=== PATIENT | male | born 1955 | race Caucasian/White ===

== ENCOUNTER 2017-09-05 19:11 | Inpatient (IN) | payer BC, MEDICAID ==
[2017-09-05] VITALS (9 sets, daily range): BP systolic 170–214; BP diastolic 58–104; PULSE 56–68; RESP 16–19; TEMP 98.7; O2SAT 96–100
[~2017-09-05] VITALS: Ht 170.2 cm; Wt 89.0 kg
[~2017-09-05 19:11] MED LIST: AMIO200 PO; ASPI81 PO; CEPH500C3 PO; LISI20 PO; METO50TA PO; PRAV10 PO; THERM PO
--- NOTE | 2017-09-05 19:33 | PD ---
HPI Chief Complaint: Chest Pain Time Seen by Provider: 19:30 Travel History International Travel<30 days: No Contact w/Intl Traveler<30days: No Traveled to known affect area: No History of Present Illness HPI PATIENT C/O AN ONGOING UPPER ABDOMEN (POINTS TO EPIG/LUQ) DISCOMFORT, NONRADIATING, PRESSURE LIKE, INTERMITTENT INTENSITY BUT USUALLY 3/10 FOR PAST 3 WEEKS HOWEVER OVER PAST 2-3 DAYS MORE INTENSE AROUND 8/10. NO ALLEVIATING/ AGGRAVATING FACTORS. PATIENT ARRIVED VERY HIGH BLOOD PRESSURE DESPITE TAKING MEDICATIONS USUAL. 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 YET NOT ON ANY MEDICATIONS PFSH Past Medical History Hx Anticoagulant Therapy: Yes (ASA) Blood Disorders: No Heart Rhythm Problems: No Cancer: No Cardiovascular Problems: Yes (CABG X3, HTN) High Cholesterol: Yes Chest Pain: Yes Congestive Heart Failure: No Diabetes: Yes (6months ago his said he may have diabetes) Diminished Hearing: No Endocrine: Yes Genitourinary: No Hypertension: Yes Immune Disorder: No Musculoskeletal: No Neurologic: No Psychiatric: No Reproductive: No Respiratory: Yes (SOB) Myocardial Infarction: Yes Thyroid Disease: No Past Surgical History Coronary Artery Bypass Graft: Yes (DOUBLE BYPASS) Social History Alcohol Use: Yes ("ONCE IN A WHILE") Tobacco Use: No Substance Use: No Allergies-Medications (Allergen,Severity, Reaction): Coded Allergies: No Known Allergies (Verified , 09/05/17) Reported Meds & Prescriptions Reported Meds & Active Scripts Active Review of Systems Except as stated in HPI: all other systems reviewed are Neg Gastrointestinal: Positive: Abdominal Pain (EPIG ) Physical Exam Narrative GENERAL: SKIN: Warm and dry. HEAD: Atraumatic. Normocephalic. EYES: Pupils equal and round. No scleral icterus. No injection or drainage. ENT: No nasal bleeding or discharge. Mucous membranes pink and moist. NECK: Trachea midline. No JVD. CARDIOVASCULAR: Regular rate and rhythm. RESPIRATORY: No accessory muscle use. Clear to auscultation. Breath sounds equal bilaterally. GASTROINTESTINAL: Abdomen soft, MILD EPIG TTPERCUSSION, nondistended. NO REBOUND /GUARDING/RIGIDITY MUSCULOSKELETAL: Extremities without clubbing, cyanosis, or edema. No obvious deformities. NEUROLOGICAL: Awake and alert. No obvious cranial nerve deficits. Motor grossly within normal limits. Five out of 5 muscle strength in the arms and legs. Normal speech. PSYCHIATRIC: Appropriate mood and affect; insight and judgment normal. Data Data Last Documented VS Vital Signs Date Time Temp Pulse Resp B/P (MAP) Pulse Ox O2 Delivery O2 Flow Rate FiO2 09/05/17 22:00 56 19 174/88 (116) 98 Nasal Cannula 09/05/17 19:14 98.7 Orders Orders Complete Blood Count With Diff (09/05/17 19:40) Comprehensive Metabolic Panel (09/05/17 19:40) Lipase (09/05/17 19:40) Prothrombin Time / Inr (Pt) (09/05/17 19:40) Act Partial Throm Time (Ptt) (09/05/17 19:40) Urinalysis - C+S If Indicated (09/05/17 19:40) Ct Abd/Pel W/O Iv Contrast (09/05/17 19:40) Iv Access Insert/Monitor (09/05/17 19:40) Ecg Monitoring (09/05/17 19:40) Oximetry (09/05/17 19:40) NPO (09/05/17 19:40) Morphine Inj (Morphine Inj) (09/05/17 19:45) Ondansetron Inj (Zofran Inj) (09/05/17 19:45) Sodium Chloride 0.9% Flush (Ns Flush) (09/05/17 19:45) Electrocardiogram (09/05/17 19:40) Hydralazine Inj (Apresoline Inj) (09/05/17 19:45) Aspirin Chew (Aspirin Chew) (09/05/17 19:45) Nitroglycerin 2% Oint (Nitroglycerin 2% (09/05/17 19:45) Piperacil-Tazo 3.375 Gm Premix (Zosyn 3. (09/05/17 21:00) Admit Order (Ed Use Only) (09/05/17 22:32) Vital Signs (Adult) Q4H (09/05/17 22:32) Activity Bed Rest (09/05/17 22:32) Notify Dr: Other (09/05/17 22:32) Consult General Surgery (09/05/17 ) Labs Laboratory Tests Test 09/05/17 20:20 White Blood Count 6.2 TH/MM3 Red Blood Count 5.14 MIL/MM3 Hemoglobin 15.2 GM/DL Hematocrit 45.1 % Mean Corpuscular Volume 87.8 FL Mean Corpuscular Hemoglobin 29.7 PG Mean Corpuscular Hemoglobin Concent 33.8 % Red Cell Distribution Width 12.6 % Platelet Count 181 TH/MM3 Mean Platelet Volume 8.8 FL Neutrophils (%) (Auto) 45.1 % Lymphocytes (%) (Auto) 30.4 % Monocytes (%) (Auto) 9.8 % Eosinophils (%) (Auto) 13.6 % Basophils (%) (Auto) 1.1 % Neutrophils # (Auto) 2.8 TH/MM3 Lymphocytes # (Auto) 1.9 TH/MM3 Monocytes # (Auto) 0.6 TH/MM3 Eosinophils # (Auto) 0.8 TH/MM3 Basophils # (Auto) 0.1 TH/MM3 CBC Comment DIFF FINAL Differential Comment Prothrombin Time 10.7 SEC Prothromb Time International Ratio 1.0 RATIO Activated Partial Thromboplast Time 26.4 SEC Urine Color LIGHT-YELLOW Urine Turbidity CLEAR Urine pH 7.0 Urine Specific [place] 1.006 Urine Protein NEG mg/dL Urine Glucose (UA) NEG mg/dL Urine Ketones NEG mg/dL Urine Occult Blood NEG Urine Nitrite NEG Urine Bilirubin NEG Urine Urobilinogen LESS THAN 2.0 MG/DL Urine Leukocyte Esterase NEG Urine RBC LESS THAN 1 /hpf Urine WBC 1 /hpf Microscopic Urinalysis Comment CULT NOT INDICATED Blood Urea Nitrogen 20 MG/DL Creatinine 1.12 MG/DL Random Glucose 124 MG/DL Total Protein 8.0 GM/DL Albumin 4.1 GM/DL Calcium Level 9.4 MG/DL Alkaline Phosphatase 92 U/L Aspartate Amino Transf (AST/SGOT) 18 U/L Alanine Aminotransferase (ALT/SGPT) 28 U/L Total Bilirubin 0.3 MG/DL Sodium Level 136 MEQ/L Potassium Level 4.0 MEQ/L Chloride Level 102 MEQ/L Carbon Dioxide Level 24.6 MEQ/L Anion Gap 9 MEQ/L Estimat Glomerular Filtration Rate 66 ML/MIN Lipase 192 U/L MDM Medical Decision Making Medical Screen Exam Complete: Yes Emergency Medical Condition: Yes Medical Record Reviewed: Yes Interpretation(s) nsr 66, nl intervals, lvh, no stemi pattern Differential Diagnosis PANCREATITIS V GASTRITIS V ATYPICAL MN PRESENTATION V NONSTEMI Narrative Course patient is not regularly followed by reconstructive surgeon and is at risk for nonstemi, abdominal workup REVEALED CHOLECYSTITIS, i believe it a prudent plan TO CLEAR FROM CARDIAC POINT OF VIEW AND THEN IF CLEARED GEN SURG TO PERFORM CHOLECYSTECTOMY Diagnosis Primary Impression: Epigastric discomfort Additional Impressions: Hypertensive urgency Cholecystitis Nitin Lockhart MD Sep 05, 2017 19:33
[2017-09-05] MEDS ORDERED: hydrALAZINE HCL 20 MG/ML VIAL IV PUSH ONE (19:45)
[2017-09-05] MEDS ORDERED: ASPIRIN 81 MG CHEW TAB PO ONE (19:45)
[2017-09-05] MEDS ORDERED: SODIUM CHLORIDE 0.9% FLUSH 10 ML FLUSH IV FLUSH PRN ×2 (19:45→22:45)
[2017-09-05] MEDS ORDERED: NITROGLYCERIN 2% OINT 1 GM PACKET TOP ONE (19:45)
[2017-09-05] MEDS ORDERED: MORPHINE SULFATE 4 MG/ML INJ IV PUSH ONE (19:45)
[2017-09-05] MEDS ORDERED: ONDANSETRON HCL 4 MG/2 ML VIAL IVP ONE (19:45)
--- NOTE | 2017-09-05 20:50 | RADRPT ---
EXAM DATE/TIME: 09/05/2017 19:59 [facility] COMPARISON: No previous studies available for comparison. INDICATIONS : Upper abdomen pain for three days. This is the patient's third episode of abdominal pain with vomiti ng in the past month. ORAL CONTRAST: No oral contrast ingested. RADIATION DOSE: 14.33 CTDIvol (mGy) MEDICAL HISTORY : Cardiovascular disease. Hypertension. SURGICAL HISTORY : CABG ENCOUNTER: Initial ACUITY: 3 days PAIN SCALE: 8/10 LOCATION: Bilateral upper quadrant TECHNIQUE: Volumetric scanning of the abdomen and pelvis was performed. Using automated exposure control and ad justment of the mA and/or kV according to patient size, radiation dose was kept as low as reasonably achievable to obtain optimal diagnostic quality images. DICOM format image data is available electro nically for review and comparison. FINDINGS: LOWER LUNGS: The visualized lower lungs are clear. LIVER: Homogeneous density without lesion. There is no dilation of the biliary tree. 2 small calcified ston es are identified in the gallbladder neck. There is subtle pericholecystic inflammation. SPLEEN: Normal size without lesion. PANCREAS: Within normal limits. KIDNEYS: Normal in size and shape. Small calculus is identified in the midpole the right kidney. There is no mass or hydronephrosis. ADRENAL GLANDS: Within normal limits. VASCULAR: There is no aortic aneurysm. BOWEL/MESENTERY: The stomach, small bowel, and colon demonstrate no acute abnormality. There is no free intraperitone al air or fluid. ABDOMINAL WALL: Within normal limits. RETROPERITONEUM: There is no lymphadenopathy. BLADDER: No wall thickening or mass. REPRODUCTIVE: Within normal limits. INGUINAL: There is no lymphadenopathy or hernia. MUSCULOSKELETAL: Within normal limits for patient age. CONCLUSION: 1. Small calcified gallstone is lodged in the gallbladder neck with early pericholecystic inflammatio n. 2. Nonobstructive right renal calculus. 3. No other significant abnormality. Foster Rausch MD on September 05, 2017 at 20:44 Board Certified Radiologist. This report was verified electronically.
[2017-09-05 20:56] LABS: AUTOMATED NEUTROPHIL # 2.8 TH/MM3 (1.8-7.7); BASOPHIL # 0.1 TH/MM3 (0-0.2); BASOPHIL % 1.1 % (0.0-2.0); EOSINOPHIL # 0.8 TH/MM3 (0-0.4); EOSINOPHIL % 13.6 % (0.0-4.0); HEMATOCRIT 45.1 % (39.0-51.0); HEMO FLAGS DIFF FINAL; LYMPH % 30.4 % (9.0-44.0); LYMPHOCYTE # 1.9 TH/MM3 (1.0-4.8); MEAN CELL VOLUME 87.8 FL (80.0-100.0); MEAN CORPUSCULAR HEMOGLOBIN 29.7 PG (27.0-34.0); MEAN CORPUSCULAR HGB CONC 33.8 % (32.0-36.0); MONO % 9.8 % (0.0-8.0); NEUT % 45.1 % (16.0-70.0); PLATELET COUNT 181 TH/MM3 (150-450); RED BLOOD COUNT 5.14 MIL/MM3 (4.50-5.90); RED CELL DISTRIBUTION WIDTH 12.6 % (11.6-17.2); WHITE BLOOD COUNT 6.2 TH/MM3 (4.0-11.0)
[2017-09-05 20:58] LABS: BLOOD, URINE NEG (NEG); GLUCOSE,URINE NEG (NEG); KETONE, URINE NEG (NEG); NITRITE,URINE NEG (NEG); URINE COLOR LIGHT-YELLOW (YELLW/STRAW)
[2017-09-05] MEDS ORDERED: PIPERACIL-TAZO 3.375 GM PREMIX 50 ML IV ONE (21:00)
[2017-09-05 21:03] LABS: COMMENT (UR) CULT NOT INDICATED; CULTURE IF INDICATED CULT NOT INDICATED
[2017-09-05 21:05] LABS: APTT (PATIENT) 26.4 SEC (24.3-30.1); PROTHROMBIN TIME - PATIENT 10.7 SEC (9.8-11.6)
[2017-09-05 21:35] LABS: ANION GAP 9 MEQ/L (5-15); AST (GOT) 18 U/L (15-37); BICARBONATE 24.6 MEQ/L (21.0-32.0); BLOOD UREA NITROGEN 20 MG/DL (7-18); CHLORIDE 102 MEQ/L (98-107); GLOMERULAR FILTRATION RATE 66 ML/MIN (>89); SODIUM (NA) 136 MEQ/L (136-145)
[2017-09-05 21:36] LABS: ALT (GPT) 28 U/L (12-78)
[2017-09-05 21:39] LABS: ALKALINE PHOSPHATASE 92 U/L (45-117); TOTAL BILIRUBIN ADULT 0.3 MG/DL (0.2-1.0)
[2017-09-05] MEDS ORDERED: ACETAMINOPHEN/HYDROcodone 325 MG/5 MG TAB PO PRN (22:45)
[2017-09-05] MEDS ORDERED: SENNOSIDES 8.6 MG TAB PO PRN (22:45)
[2017-09-05] MEDS ORDERED: BISACODYL 10 MG SUPP RECTAL PRN (22:45)
[2017-09-05] MEDS ORDERED: ACETAMINOPHEN 325 MG TAB PO PRN (22:45)
[2017-09-05] MEDS ORDERED: MAGNESIUM HYDROXIDE SUSP 30 ML CUP PO PRN (22:45)
[2017-09-05] MEDS ORDERED: LACTULOSE SYRUP 20 GM/30 ML CUP PO PRN (22:45)
--- NOTE | 2017-09-05 22:46 | HHI.HP ---
[facility]Staff Admission Diagnosis ACUTE CHOLECYSTITIS, H/O CABBG Diagnoses: (1) Dehydration Diagnosis: Principal (2) Cholecystitis Diagnosis: Principal (3) HTN (hypertension) Diagnosis: Principal Travel History International Travel<30 Days: No Contact w/Intl Traveler <30 Da: No Traveled to Known Affected Are: No History of Present Illness This is a 62-year-old male with a PMH of HTN, Hyperlipidemia and CAD s/p CABG who presented to the ER w/ complaints of epigastric pain x2-3 wks. States symptoms have been getting progressively worse in the last 2 days. Denies fever , chills, nausea or vomiting. On arrival, BP 214/97, HR 61, O2 sat 99% on RA. S/p Hydralazine 10mg IV, repeat BP 188/104, HR 66. CBC unremarkable. Chemistry essentially unremarkable except for GFR 66. BUN 20. INR 1.0. UA negative. CT Abd/Pelvis w/ small calcified gallstone lodged in the gallbladder neck with early pericholecystic inflammation. Gen. Surgery consulted by ER physician, will evaluate further. S/p Zosyn in ER. Review of Systems Except as stated in HPI: all other systems reviewed are Neg ROS: 14 point review of systems otherwise negative. Past Family Social History Past Medical History PMH: HTN, Hyperlipidemia and CAD s/p CABG Past Surgical History PAST SURGICAL HISTORY: CABG Allergies: Coded Allergies: No Known Allergies (Verified , 09/05/17) Family History PAST FAMILY HISTORY: Reviewed. No h/o DM or CAD Social History PAST SOCIAL HISTORY: Occasional alcohol. Negative for tobacco or drugs. Physical Exam Vital Signs Vital Signs Date Time Temp Pulse Resp B/P (MAP) Pulse Ox O2 Delivery O2 Flow Rate FiO2 09/05/17 20:42 66 18 188/104 (132) 100 Room Air 09/05/17 20:18 100 Room Air 09/05/17 19:14 98.7 61 16 214/97 (136) 99 Room Air Physical Exam PE: GENERAL: Middle-aged male in no acute distress. HEENT: PERRLA, EOMI. No scleral icterus or conjunctival pallor. No lid lag or facial droop. CARDIOVASCULAR: Regular rate and rhythm. No obvious murmurs to auscultation. No chest tenderness to palpation. RESPIRATORY: No obvious rhonchi or wheezing. Clear to auscultation. Breath sounds equal bilaterally. GASTROINTESTINAL: Abdomen soft, mild epigastric tenderness to palpation, nondistended. BS normal. MUSCULOSKELETAL: Extremities without clubbing, cyanosis, or edema. No obvious deformities. NEUROLOGICAL: Awake, alert and oriented x4. No focal neurologic deficits. Moving both upper and lower extremities spontaneously. Laboratory Laboratory Tests Test 09/05/17 20:20 White Blood Count 6.2 Red Blood Count 5.14 Hemoglobin 15.2 Hematocrit 45.1 Mean Corpuscular Volume 87.8 Mean Corpuscular Hemoglobin 29.7 Mean Corpuscular Hemoglobin Concent 33.8 Red Cell Distribution Width 12.6 Platelet Count 181 Mean Platelet Volume 8.8 Neutrophils (%) (Auto) 45.1 Lymphocytes (%) (Auto) 30.4 Monocytes (%) (Auto) 9.8 Eosinophils (%) (Auto) 13.6 Basophils (%) (Auto) 1.1 Neutrophils # (Auto) 2.8 Lymphocytes # (Auto) 1.9 Monocytes # (Auto) 0.6 Eosinophils # (Auto) 0.8 Basophils # (Auto) 0.1 CBC Comment DIFF FINAL Differential Comment Prothrombin Time 10.7 Prothromb Time International Ratio 1.0 Activated Partial Thromboplast Time 26.4 Urine Color LIGHT-YELLOW Urine Turbidity CLEAR Urine pH 7.0 Urine Specific [place] 1.006 Urine Protein NEG Urine Glucose (UA) NEG Urine Ketones NEG Urine Occult Blood NEG Urine Nitrite NEG Urine Bilirubin NEG Urine Urobilinogen LESS THAN 2.0 Urine Leukocyte Esterase NEG Urine RBC LESS THAN 1 Urine WBC 1 Microscopic Urinalysis Comment CULT NOT INDICATED Blood Urea Nitrogen 20 Creatinine 1.12 Random Glucose 124 Total Protein 8.0 Albumin 4.1 Calcium Level 9.4 Alkaline Phosphatase 92 Aspartate Amino Transf (AST/SGOT) 18 Alanine Aminotransferase (ALT/SGPT) 28 Total Bilirubin 0.3 Sodium Level 136 Potassium Level 4.0 Chloride Level 102 Carbon Dioxide Level 24.6 Anion Gap 9 Estimat Glomerular Filtration Rate 66 Lipase 192 Result Diagram: 09/05/17201909/05/172019 Caprini VTE Risk Assessment Caprini VTE Risk Assessment: No/Low Risk (score <= 1) Caprini Risk Assessment Model Point Value = 1 Point Value = 2 Point Value = 3 Point Value = 5 Age 41-60 Minor surgery BMI > 25 kg/m2 Swollen legs Varicose veins or History of unexplained or recurrent spontaneous Oral contraceptives or hormone replacement Sepsis (< 1 month) Serious lung disease, including pneumonia (< 1 month) Abnormal pulmonary function Acute myocardial infarction Congestive heart failure (< 1 month) History of inflammatory bowel disease Medical patient at bed rest Age 61-74 Arthroscopic surgery Major open surgery (> 45 min) Laparoscopic surgery (> 45 min) Malignancy Confined to bed (> 72 hours) Immobilizing plaster cast Central venous access Age >= 75 History of VTE Family history of VTE Factor V Leiden Prothrombin [id number] Lupus anticoagulant Anticardiolipin antibodies Elevated serum homocysteine Heparin-induced thrombocytopenia Other congenital or acquired thrombophilia Stroke (< 1 month) Elective arthroplasty Hip, pelvis, or leg fracture Acute spinal cord injury (< 1 month) Prophylaxis Regimen Total Risk Factor Score Risk Level Prophylaxis Regimen 0-1 Low Early ambulation 2 Moderate Order ONE of the following: *Sequential Compression Device (SCD) *Heparin 5000 units SQ BID 3-4 Higher Order ONE of the following medications: *Heparin 5000 units SQ TID *Enoxaparin/Lovenox 40 mg SQ daily (WT < 150 kg, CrCl > 30 mL/min) *Enoxaparin/Lovenox 30 mg SQ daily (WT < 150 kg, CrCl > 10-29 mL/min) *Enoxaparin/Lovenox 30 mg SQ BID (WT < 150 kg, CrCl > 30 mL/min) AND/OR *Sequential Compression Device (SCD) 5 or more Highest Order ONE of the following medications: *Heparin 5000 units SQ TID (Preferred with Epidurals) *Enoxaparin/Lovenox 40 mg SQ daily (WT < 150 kg, CrCl > 30 mL/min) *Enoxaparin/Lovenox 30 mg SQ daily (WT < 150 kg, CrCl > 10-29 mL/min) *Enoxaparin/Lovenox 30 mg SQ BID (WT < 150 kg, CrCl > 30 mL/min) AND *Sequential Compression Device (SCD) Assessment and Plan Problem List: (1) Cholecystitis ICD Code: K81.9 - Cholecystitis, unspecified (2) HTN (hypertension) ICD Code: I10 - Essential (primary) hypertension Status: Chronic (3) Dehydration ICD Code: E86.0 - Dehydration Assessment and Plan A/P: 1. Cholecystitis: ongoing c/o epigastric pain x3 wks, now progressively worse over last 2 days, no associated nausea/vomiting. CT Abd/Pelvis w/ small calcified gallstone lodged in gallbladder neck w/ early pericholecystic inflammation. Gen Sx consulted by ER physician, will eval. S/p Zosyn in ER, will continue w/ IV Abx. Analgesics/antiemetics. Check CXR. 2. HTN: Uncontrolled. BP 214/97, HR 61 on arrival, reports compliance w/ medications, likely compounded by pain complaints. S/p Hydralazine 10mg IV x1 in ER, repeat BP 188/104, HR 66. Monitor BP. Restart home medications. 3. Dehydration: GFR 66. BUN 20. Creatinine normal. U/a negative. IVF for hydration, repeat labs in am. 4. DVT Prophylaxis: SCD/Teds. 5. Social work for d/c planning as needed. 6. Case discussed w/ ER physician at length. Physician Certification 2 Midnight Certification Type: Admission for Inpatient Services Order for Inpatient Services The services are ordered in accordance with Medicare regulations or non- Medicare payer requirements, as applicable. In the case of services not specified as inpatient-only, they are appropriately provided as inpatient services in accordance with the 2-midnight benchmark. Estimated LOS (days): 2 days is the estimated time the patient will need to remain in the hospital, assuming treatment plan goals are met and no additional complications. Post-Hospital Plan: Not yet determined Love Kwong MD Sep 05, 2017 22:46
[2017-09-05] MEDS: SODIUM CHLOR 0.9% 1000 ML INJ 1,000 ML IV SCH (22:59)
[2017-09-06] VITALS (8 sets, daily range): BP systolic 118–181; BP diastolic 70–85; PULSE 56–70; RESP 16–18; TEMP 97–99.2; O2SAT 96–99
--- NOTE | 2017-09-06 00:20 | RADRPT ---
EXAM DATE/TIME: 09/05/2017 23:24 [facility] COMPARISON: CHEST SINGLE AP, June 12, 2016, 6:10. INDICATIONS : Chest and upper abdominal pain MEDICAL HISTORY : Hypercholesterolemia. Hypertension SURGICAL HISTORY : CABG. Bypass surgery ENCOUNTER: Initial ACUITY: 1 day PAIN SCORE: 7/10 LOCATION: Bilateral chest FINDINGS: The cardiac silhouette is normal in transverse diameter. The lungs are free of acute parenchymal opac ity. No effusions are identified. Median sternotomy wires are present. CONCLUSION: 1. No acute cardiopulmonary disease. Juan Li MD on September 06, 2017 at 0:15 Board Certified Radiologist. This report was verified electronically.
[2017-09-06] MEDS ORDERED: LISI-515 PO (01:31)
[2017-09-06] MEDS ORDERED: SIMV20TA PO (01:31)
[2017-09-06] MEDS ORDERED: ASPI81CH CHEW (01:31)
[2017-09-06] MEDS ORDERED: METO50TA PO (01:31)
[2017-09-06] MEDS: ONDANSETRON HCL 4 MG/2 ML VIAL IVP PRN ×2 (01:49→07:54)
[2017-09-06] MEDS: MORPHINE SULFATE 4 MG/ML INJ IV PUSH PRN ×3 (01:49→11:27)
[2017-09-06] MEDS: SODIUM CHLOR 0.9% 1000 ML INJ 1,000 ML IV SCH ×3 (01:54→23:06)
[2017-09-06] MEDS: PIPERACIL-TAZO 4.5 GM PREMIX 100 ML IV SCH ×4 (04:18→23:13)
[2017-09-06] MEDS ORDERED: ENALAPRILAT 1.25 MG/ML VIAL IV PUSH PRN (07:30)
[2017-09-06 07:32] LABS: AUTOMATED NEUTROPHIL # 7.1 TH/MM3 (1.8-7.7); BASOPHIL % 0.3 % (0.0-2.0); EOSINOPHIL % 0.4 % (0.0-4.0); HEMATOCRIT 41.7 % (39.0-51.0); HEMO FLAGS DIFF FINAL; LYMPH % 13.1 % (9.0-44.0); LYMPHOCYTE # 1.2 TH/MM3 (1.0-4.8); MEAN CELL VOLUME 87.5 FL (80.0-100.0); MEAN CORPUSCULAR HEMOGLOBIN 29.8 PG (27.0-34.0); MONO % 5.9 % (0.0-8.0); NEUT % 80.3 % (16.0-70.0); PLATELET COUNT 168 TH/MM3 (150-450); RED BLOOD COUNT 4.77 MIL/MM3 (4.50-5.90); RED CELL DISTRIBUTION WIDTH 12.5 % (11.6-17.2); WHITE BLOOD COUNT 8.8 TH/MM3 (4.0-11.0)
[2017-09-06 08:19] LABS: ALKALINE PHOSPHATASE 80 U/L (45-117); ALT (GPT) 25 U/L (12-78); ANION GAP 8 MEQ/L (5-15); AST (GOT) 15 U/L (15-37); BICARBONATE 24.3 MEQ/L (21.0-32.0); BLOOD UREA NITROGEN 14 MG/DL (7-18); CHLORIDE 103 MEQ/L (98-107); GLOMERULAR FILTRATION RATE 79 ML/MIN (>89); POTASSIUM 3.7 MEQ/L (3.5-5.1); SODIUM (NA) 135 MEQ/L (136-145); TOTAL BILIRUBIN ADULT 0.7 MG/DL (0.2-1.0)
[2017-09-06] MEDS ORDERED: METOPROLOL TARTRATE 25 MG TAB PO SCH (09:00)
[2017-09-06] MEDS: SODIUM CHLORIDE 0.9% FLUSH 10 ML FLUSH IV FLUSH SCH ×3 (09:00→21:15)
[2017-09-06] MEDS: LISINOPRIL 20 MG TAB PO SCH (09:15)
[2017-09-06] MEDS: DOCUSATE SODIUM 50 MG/SENNA 8.6 MG TAB PO SCH ×2 (09:15→23:05)
[2017-09-06] MEDS: METOPROLOL TARTRATE 50 MG TAB PO SCH ×2 (09:15→23:05)
--- NOTE | 2017-09-06 10:12 | HHI.PR ---
Subjective Remarks Patient says he is still feeling nauseous but no vomiting the past 2 days. Continued right upper quadrant/epigastric pain. Denies any chest pain. He reports chronic shortness of breath which is not worsened. Objective Vital Signs Date Time Temp Pulse Resp B/P (MAP) Pulse Ox O2 Delivery O2 Flow Rate FiO2 09/06/17 07:28 98.9 61 16 165/77 (106) 96 09/06/17 05:35 62 09/06/17 03:04 99.0 58 16 156/79 (104) 97 09/06/17 01:33 99.1 58 18 175/79 (111) 99 09/06/17 00:54 58 18 170/85 (113) 98 Room Air 09/05/17 23:52 68 18 170/58 (95) 96 Room Air 09/05/17 23:30 58 18 186/84 (118) 98 Room Air 09/05/17 23:00 56 18 171/88 (115) 99 Room Air 09/05/17 22:00 56 19 174/88 (116) 98 Nasal Cannula 09/05/17 21:30 64 18 209/97 (134) 99 Room Air 09/05/17 21:00 56 18 184/92 (122) 99 Room Air 09/05/17 20:42 66 18 188/104 (132) 100 Room Air 09/05/17 20:18 100 Room Air 09/05/17 19:14 98.7 61 16 214/97 (136) 99 Room Air I/O 09/05/17 09/05/17 09/05/17 09/06/17 09/06/17 09/06/17 07:00 15:00 23:00 07:00 15:00 23:00 Intake Total 50 ml 1676 ml Output Total 900 ml Balance 50 ml 776 ml Intake Oral 240 ml IV Total 50 ml 1436 ml Output Urine Total 900 ml Result Diagram: 09/06/1760809/06/17608 Objective Remarks GENERAL: Patient lying in bed. Appears comfortable. SKIN: Warm and dry. HEAD: Normocephalic. EYES: No scleral icterus. No injection or drainage. NECK: Supple, trachea midline. No JVD . CARDIOVASCULAR: Regular rate and rhythm without murmurs, gallops, or rubs. RESPIRATORY: Breath sounds equal bilaterally. No accessory muscle use. GASTROINTESTINAL: Abdomen soft. Right upper quadrant tenderness to moderate palpation. No rebound or guarding. MUSCULOSKELETAL: No cyanosis, or edema. BACK: Nontender without obvious deformity. No CVA tenderness. A/P Assessment and Plan // Cholecystitis: ongoing c/o epigastric pain x3 wks, now progressively worse over last 2 days, no associated nausea/vomiting. CT Abd/Pelvis w/ small calcified gallstone lodged in gallbladder neck w/ early pericholecystic inflammation. Gen Sx consulted by ER physician, will eval. S/p Zosyn in ER, will continue w/ IV Abx. Analgesics/antiemetics. -09/06 Chest x-ray with no acute findings.. Follow-up general surgery recommendations. // HTN: Uncontrolled. BP 214/97, HR 61 on arrival, reports compliance w/ medications, likely compounded by pain complaints. S/p Hydralazine 10mg IV x1 in ER, repeat BP 188/104, HR 66. Monitor BP. Restart home medications. = 09/06. Blood pressure slightly elevated in the 160s. We'll decrease maintenance fluids. //CAD -History of CABG in 2016. Troponin 0.022. EKG normal sinus rhythm. Continue on metoprolol. Restart statin medication. Restart aspirin when cleared from surgical perspective. Patient denies any chest pain with exertion. // Dehydration: GFR 66. BUN 20. Creatinine normal. U/a negative. IVF for hydration, //DVT Prophylaxis: SCD/Teds. Discharge Planning Pending general surgery evaluation. Continues on antibiotics for cholecystitis. Adin Ortega MD Sep 06, 2017 10:12
[2017-09-06] MEDS ORDERED: NEOSTIGMINE 3 MG/3 ML SYR IV ONE (12:41)
[2017-09-06] MEDS ORDERED: GLYCOPYRROLATE 1 MG/5 ML SYRINGE IV PUSH ONE (12:41)
[2017-09-06] MEDS ORDERED: LACTATED RINGER'S 1000 ML INJ 1,000 ML IV ONE (12:41)
--- NOTE | 2017-09-06 16:56 | PD.CONS ---
cc: Dmitry Hercules MD HPI Service General Surgery Consult Requested By Dr. Kwong Reason for Consult Evaluate for cholecystitis Primary Care Physician Non-Staff History of Present Illness This is a 62 year old male with a past medical history of hypertension d CAD s/ p CABG in April 2016. The patient has had on and off abdominal pain with associated nausea and vomiting for about one month now. He has not had any formal evaluation of the symptoms. He reports the pain intensified Wednesday evening with prompted him to the come to the ED. The patient has a normal WBC. He has normal liver enzymes. A CT abdomen/pelvis was obtained which showed a gallstone in the neck of the gallbladder with early pericholecystic inflammation. He was started on Zosyn and has remained NPO. A General Surgery consultation has been requested. Review of Systems Constitutional: COMPLAINS OF: Change in appetite, DENIES: Fatigue Endocrine: DENIES: Polydipsia, Polyuria, Polyphagia Eyes: DENIES: Diplopia Ears, nose, mouth, throat: DENIES: Hearing loss Respiratory: DENIES: Apneas Cardiovascular: DENIES: Chest pain Gastrointestinal: COMPLAINS OF: Abdominal pain, Nausea, Vomiting Genitourinary: DENIES: Urgency Musculoskeletal: DENIES: Joint pain Integumentary: DENIES: Abnormal pigmentation Hematologic/lymphatic: DENIES: Bruising Immunologic/allergic: DENIES: Eczema Neurologic: DENIES: Headache, Localized weakness Psychiatric: DENIES: Mood changes, Depression, Hallucinations Past Family Social History Past Medical History Hypertension CAD Past Surgical History CABG---April 2016 Reported Medications Simvastatin Metoprolol Lisinopril ASA Allergies: Coded Allergies: No Known Allergies (Verified , 09/05/17) Active Ordered Medications Current Medications Medications (Trade) Dose Ordered Sig/Rafael Route Start Time Stop Time Status Last Admin Piperacillin Sod/ Tazobactam Sod 100 ml @ 200 mls/hr Q6H IV 09/06/17 04:00 09/06/17 16:36 Sodium Chloride 1,000 ml @ 65 mls/hr [id number] IV 09/05/17 22:42 09/06/17 01:54 (NS Flush) 2 ml UNSCH PRN IV FLUSH 09/05/17 22:45 (NS Flush) 2 ml BID IV FLUSH 09/06/17 09:00 (Zofran Inj) 4 mg Q6H PRN IVP 09/05/17 22:45 09/06/17 07:54 (Tylenol) 650 mg Q6H PRN PO 09/05/17 22:45 ([place] 5-325 Mg) 1 tab Q4H PRN PO 09/05/17 22:45 (Morphine Inj) 2 mg Q3H PRN IV PUSH 09/05/17 22:45 09/06/17 11:27 (Julissa-Colace) 1 tab BID PO 09/06/17 09:00 09/06/17 09:15 (Milk Of Magnesia Liq) 30 ml Q12H PRN PO 09/05/17 22:45 (Senokot) 17.2 mg Q12H PRN PO 09/05/17 22:45 (Dulcolax Supp) 10 mg DAILY PRN RECTAL 09/05/17 22:45 (Lactulose Liq) 30 ml DAILY PRN PO 09/05/17 22:45 (Prinivil) 20 mg DAILY PO 09/06/17 09:00 09/06/17 09:15 (Lopressor) 50 mg BID PO 09/06/17 09:00 09/06/17 09:15 (Vasotec Inj) 1.25 mg Q6H PRN IV PUSH 09/06/17 07:30 (Pravachol) 40 mg HS PO 09/06/17 21:00 Family History Non contributory Social History Denies tobacco use ETOH use---socially; not daily Denies illicit drug use Physical Exam Vital Signs Vital Signs Date Time Temp Pulse Resp B/P (MAP) Pulse Ox O2 Delivery O2 Flow Rate FiO2 09/06/17 15:08 99.2 57 18 172/81 (111) 98 09/06/17 11:32 18 09/06/17 11:18 98.8 56 18 181/81 (114) 97 09/06/17 07:28 98.9 61 16 165/77 (106) 96 09/06/17 05:35 62 09/06/17 03:04 99.0 58 16 156/79 (104) 97 09/06/17 01:33 99.1 58 18 175/79 (111) 99 09/06/17 00:54 58 18 170/85 (113) 98 Room Air 09/05/17 23:52 68 18 170/58 (95) 96 Room Air 09/05/17 23:30 58 18 186/84 (118) 98 Room Air 09/05/17 23:00 56 18 171/88 (115) 99 Room Air 09/05/17 22:00 56 19 174/88 (116) 98 Nasal Cannula 09/05/17 21:30 64 18 209/97 (134) 99 Room Air 09/05/17 21:00 56 18 184/92 (122) 99 Room Air 09/05/17 20:42 66 18 188/104 (132) 100 Room Air 09/05/17 20:18 100 Room Air 09/05/17 19:14 98.7 61 16 214/97 (136) 99 Room Air Physical Exam GENERAL: Pleasant 62 year old male resting in bed in no acute distress. SKIN: Warm and dry. HEAD: Atraumatic. Normocephalic. EYES: Pupils equal and round. No scleral icterus. No injection or drainage. ENT: No nasal bleeding or discharge. Mucous membranes pink and moist. NECK: Trachea midline. CARDIOVASCULAR: Regular rate and rhythm. RESPIRATORY: No accessory muscle use. Clear to auscultation. Breath sounds equal bilaterally. Well healed sternal incision. GASTROINTESTINAL: Abdomen soft, nondistended. Mild tenderness throughout abdomen with palpation; moderate RUQ tenderness with palpation. MUSCULOSKELETAL: Extremities without clubbing, cyanosis, or edema. No obvious deformities. NEUROLOGICAL: Awake and alert. No obvious cranial nerve deficits. Motor grossly within normal limits. Five out of 5 muscle strength in the arms and legs. Normal speech. PSYCHIATRIC: Appropriate mood and affect; insight and judgment normal. Laboratory Laboratory Tests Test 09/05/17 20:20 09/06/17 00:05 09/06/17 06:09 White Blood Count 6.2 8.8 Red Blood Count 5.14 4.77 Hemoglobin 15.2 14.2 Hematocrit 45.1 41.7 Mean Corpuscular Volume 87.8 87.5 Mean Corpuscular Hemoglobin 29.7 29.8 Mean Corpuscular Hemoglobin Concent 33.8 34.0 Red Cell Distribution Width 12.6 12.5 Platelet Count 181 168 Mean Platelet Volume 8.8 9.4 Neutrophils (%) (Auto) 45.1 80.3 Lymphocytes (%) (Auto) 30.4 13.1 Monocytes (%) (Auto) 9.8 5.9 Eosinophils (%) (Auto) 13.6 0.4 Basophils (%) (Auto) 1.1 0.3 Neutrophils # (Auto) 2.8 7.1 Lymphocytes # (Auto) 1.9 1.2 Monocytes # (Auto) 0.6 0.5 Eosinophils # (Auto) 0.8 0.0 Basophils # (Auto) 0.1 0.0 CBC Comment DIFF FINAL DIFF FINAL Differential Comment Prothrombin Time 10.7 Prothromb Time International Ratio 1.0 Activated Partial Thromboplast Time 26.4 Urine Color LIGHT-YELLOW Urine Turbidity CLEAR Urine pH 7.0 Urine Specific [place] 1.006 Urine Protein NEG Urine Glucose (UA) NEG Urine Ketones NEG Urine Occult Blood NEG Urine Nitrite NEG Urine Bilirubin NEG Urine Urobilinogen LESS THAN 2.0 Urine Leukocyte Esterase NEG Urine RBC LESS THAN 1 Urine WBC 1 Microscopic Urinalysis Comment CULT NOT INDICATED Blood Urea Nitrogen 20 14 Creatinine 1.12 0.96 Random Glucose 124 122 Total Protein 8.0 7.0 Albumin 4.1 3.5 Calcium Level 9.4 8.6 Alkaline Phosphatase 92 80 Aspartate Amino Transf (AST/SGOT) 18 15 Alanine Aminotransferase (ALT/SGPT) 28 25 Total Bilirubin 0.3 0.7 Sodium Level 136 135 Potassium Level 4.0 3.7 Chloride Level 102 103 Carbon Dioxide Level 24.6 24.3 Anion Gap 9 8 Estimat Glomerular Filtration Rate 66 79 Lipase 192 Troponin I 0.02 0.02 Result Diagram: 09/06/17 0609 09/06/17 0609 Imaging Last 48 hours Impressions Abdomen/Pelvis CT 09/05/17 1940 Signed Impressions: Service Date/Time: Tuesday, September 05, 2017 19:59 - CONCLUSION: 1. Small calcified gallstone is lodged in the gallbladder neck with early pericholecystic inflammation. 2. Nonobstructive right renal calculus. 3. No other significant abnormality. Foster Rausch MD Chest X-Ray 09/05/17 0000 Signed Impressions: Service Date/Time: Tuesday, September 05, 2017 23:24 - CONCLUSION: 1. No acute cardiopulmonary disease. Juan Li MD Assessment and Plan Assessment and Plan 62 year old male with cholecystitis -Continue NPO -IVF -Continue Zosyn -OR this evening for lap tanya with Dr. Hercules -Obtain consents -Thank you for this consult; We will continue to follow Discussed Condition With Dr. Diomedes MarianoMary Pearsonjosiahmaryjane Beatriz Torres Sep 06, 2017 16:56
[2017-09-06] MEDS ORDERED: BUPIVACAINE/EPINEPHRINE 0.25% 50 ML VIAL ONE (17:42)
[2017-09-06] MEDS ORDERED: DO NOT ADM ANY ANTICOAGULANT DRUGS PRN (20:52)
[2017-09-06] MEDS ORDERED: PRAVASTATIN SOD 40 MG TAB PO SCH (21:00)
[2017-09-06] MEDS ORDERED: ACETAMINOPHEN/HYDROcodone 325 MG/5 MG TAB PO PRN ×2 (21:15)
[2017-09-06] MEDS ORDERED: Post-op Orders (for Pharmacy) MISC XX ONE (21:15)
[2017-09-06] MEDS ORDERED: SODIUM CHLORIDE 0.9% FLUSH 10 ML FLUSH IV FLUSH PRN (21:15)
--- NOTE | 2017-09-06 22:40 | EKG ---
Date Performed: 09/05/2017 Time Performed: 19:56:15 PTAGE: 62 years EKG: Sinus rhythm NORMAL ECG PREVIOUS TRACING : 06/12/2016 05.32 Compared to prior tracing no significant change DOCTOR: Bello Norton Interpretating Date/Time 09/06/2017 22:38:06
[2017-09-07] VITALS: BP 115/66; PULSE 66; RESP 16; TEMP 96.7; O2SAT 96
[2017-09-07] MEDS: PIPERACIL-TAZO 4.5 GM PREMIX 100 ML IV SCH ×2 (04:26→08:25)
[2017-09-07 04:49] VITALS: BP 110/63; PULSE 67; RESP 16; TEMP 97.3; O2SAT 95
[2017-09-07 05:46] VITALS: O2SAT 95
[2017-09-07] MEDS: SODIUM CHLOR 0.9% 1000 ML INJ 1,000 ML IV SCH (06:32)
[2017-09-07 08:00] VITALS: BP 102/59; PULSE 64; RESP 18; TEMP 97.2; O2SAT 95
--- NOTE | 2017-09-07 08:16 | MP ---
cc: FAN PRATT DATE OF SURGERY: 09/06/2017 PREOPERATIVE DIAGNOSIS Acute cholecystitis. POSTOPERATIVE DIAGNOSIS Acute cholecystectomy. PROCEDURE Laparoscopic cholecystectomy. ATTENDING SURGEON Dr. Pratt. DATA ANALYSIS ASSISTANT Jorge Hilton, MS III. ANESTHESIA General. ESTIMATED BLOOD LOSS 50 cc. COMPLICATIONS None. FINDINGS Severely inflamed gallbladder with acute and chronic inflammation and multiple gallstones. INDICATION FOR PROCEDURE The patient is a 62-year-old male with a significant history of coronary artery disease who developed 2 months of worsening abdominal pain. This became more severe and the patient was unable to tolerate any oral intake and presented to the emergency department at [facility]. Work-up showed imaging consistent with acute cholecystitis and positive House's sign on physical exam. The patient was admitted. General surgery was consulted. I discussed with the patient about the risks, benefits and alternatives of laparoscopic cholecystectomy and he agreed to undergo the procedure for treatment of acute cholecystitis. DETAILS OF PROCEDURE The patient was taken to the operating room and placed in a supine position, placed under general endotracheal anesthesia. The patient's abdomen was shaved, prepped and draped in a sterile fashion. A timeout was performed. The abdomen was entered through a Maureen type entry with a curvilinear incision below the umbilicus. Local anesthetic was used at all sites. We directly opened the fascia and placed a 10 mm trocar into the abdomen without difficulty. I placed a 5 mm, 30 degree camera into the abdominal cavity and surveyed the abdomen. There was no evidence of any complication from our entry. We placed a 5 mm port in the subxiphoid position and two 5 mm ports in the right upper quadrant under visualization of the laparoscope. There was no intra-abdominal pathology noted with the exception of a very inflamed acute and chronic gallbladder with severe edema. We did have to decompress the gallbladder with a cholecystotomy and the suction irrigating device. I was then able to grasp it upward and start a dissection at the triangle of [place] using the hook electrocautery as well as the suction device and [place] dissector. A critical view of safety was obtained. We doubly clipped the cystic duct proximal and distal and clipped the cystic artery doubly proximal and singly distally. We divided the structures with Endoshears and used hook electrocautery to remove the gallbladder from the gallbladder fossa. We did irrigate out the right upper quadrant of a few small blood clots as well as a small amount of spilled bile without any spilled stones due to the decompression of the gallbladder. All succinate was clear after extensive irrigation of approximately two liters of saline. There was no bleeding, no bile leak or any signs of complications. We placed Surgicel down into the gallbladder fossa due to the overall area of the liver due to the extensive dissection due to the severe inflammation of the gallbladder. We then removed the ports under visualization of the laparoscope and expressed pneumoperitoneum. We closed the fascia of the Maureen entry with a [id number] 0 Vicryl suture. We closed the skin with 4-0 Monocryl and Dermabond. The patient was discontinued from anesthesia and taken to the PACU in stable condition. The patient tolerated the procedure well with no apparent complications. All counts were correct. I was present and scrubbed for the entire procedure. Of note the gallbladder was removed from the abdomen with an EndoCatch bag through the Maureen port. Fan Pratt MD AWG/BT /9:07 PM /8:02 AM
[2017-09-07] MEDS: LISINOPRIL 20 MG TAB PO SCH (08:19)
[2017-09-07] MEDS: DOCUSATE SODIUM 50 MG/SENNA 8.6 MG TAB PO SCH (08:19)
[2017-09-07] MEDS: METOPROLOL TARTRATE 50 MG TAB PO SCH (08:20)
[2017-09-07] MEDS: SODIUM CHLORIDE 0.9% FLUSH 10 ML FLUSH IV FLUSH SCH ×2 (08:20)
--- NOTE | 2017-09-07 09:15 | HHI.PR ---
Subjective Remarks Patient in nad. Eating well. no more pain in his belly. No fever or chills.Wants to go homr Objective Vitals Vital Signs Date Time Temp Pulse Resp B/P (MAP) Pulse Ox O2 Delivery O2 Flow Rate FiO2 09/07/17 05:46 95 09/07/17 04:49 97.3 67 16 110/63 (79) 95 09/07/17 00:00 96.7 66 16 115/66 (82) 96 09/06/17 23:02 97.0 70 18 118/70 (86) 96 09/06/17 21:15 64 16 165/81 (109) 98 Room Air 09/06/17 21:00 67 19 158/91 (113) 97 Room Air 09/06/17 20:57 66 21 141/87 (105) 95 Room Air 09/06/17 20:53 97.4 68 10 146/98 (114) 95 Room Air 09/06/17 15:08 99.2 57 18 172/81 (111) 98 09/06/17 11:32 18 09/06/17 11:18 98.8 56 18 181/81 (114) 97 I/O 09/06/17 09/06/17 09/06/17 09/07/17 09/07/17 09/07/17 07:00 15:00 23:00 07:00 15:00 23:00 Intake Total 1676 ml 100 ml 1100 ml 1200 ml Output Total 900 ml 50 ml 1700 ml Balance 776 ml 100 ml 1050 ml -500 ml Intake Oral 240 ml IV Total 1436 ml 100 ml 100 ml 1200 ml Other 1000 ml Output Urine Total 900 ml 1700 ml Estimated Blood Loss 50 ml Result Diagram: 09/06/17 0609 09/06/17 0609 Imaging Last Impressions Abdomen/Pelvis CT 09/05/17 1940 Signed Impressions: Service Date/Time: Tuesday, September 05, 2017 19:59 - CONCLUSION: 1. Small calcified gallstone is lodged in the gallbladder neck with early pericholecystic inflammation. 2. Nonobstructive right renal calculus. 3. No other significant abnormality. Foster Rausch MD Chest X-Ray 09/05/17 0000 Signed Impressions: Service Date/Time: Tuesday, September 05, 2017 23:24 - CONCLUSION: 1. No acute cardiopulmonary disease. Juan Li MD Objective Remarks GENERAL: Patient lying in bed. Appears comfortable. CARDIOVASCULAR: Regular rate and rhythm without murmurs, gallops, or rubs. RESPIRATORY: Breath sounds equal bilaterally. No accessory muscle use. GASTROINTESTINAL: Abdomen soft. Right upper quadrant tenderness to moderate palpation. No rebound or guarding. MUSCULOSKELETAL: No cyanosis, or edema. BACK: Nontender without obvious deformity. No CVA tenderness. Procedures Laparoscopic cholecystectomy. 09/06/[address] Hercules A/P Problem List: (1) Cholecystitis ICD Code: K81.9 - Cholecystitis, unspecified (2) HTN (hypertension) ICD Code: I10 - Essential (primary) hypertension Status: Chronic (3) Dehydration ICD Code: E86.0 - Dehydration Assessment and Plan Cholecystitis: ongoing c/o epigastric pain x3 wks, now progressively worse over last 2 days, no associated nausea/vomiting. CT Abd/Pelvis w/ small calcified gallstone lodged in gallbladder neck w/ early pericholecystic inflammation. Gen Sx consulted by ER physician, juan montaño. Received Zosyn. Analgesics/antiemetics as need. Chest x-ray reviewed with no acute findings. Laparoscopic cholecystectomy. 09/06/[address] Hercules. Follow-up general surgery recommendations. DC abx afebrile no leyukocytosis HTN: Uncontrolled. BP 214/97, HR 61 on arrival, reports compliance w/ medications, likely compounded by pain complaints. S/p Hydralazine 10mg IV x1 in ER, repeat BP 188/104, HR 66. Monitor BP. Restart home medications. 09/06. Blood pressure slightly elevated in the 160s. We'll decrease maintenance fluids. CAD -History of CABG in 2016. Troponin 0.022. EKG normal sinus rhythm. Continue on metoprolol. Restart statin medication. Restart aspirin when cleared from surgical perspective. Patient denies any chest pain with exertion. Dehydration: GFR 66. BUN 20. Creatinine normal. U/a negative. IVF for hydration, encourage PO intake DVT Prophylaxis: SCD/Teds. Discharge Planning DC today home, discussed with general surgery, cleared for DC to f/u as OP. Erica Rodrigues MD Sep 07, 2017 09:15
--- NOTE | 2017-09-07 09:18 | HHI.DS ---
Discharge Summary Admission Date Sep 06, 2017 at 10:56 Discharge Date: Sep 07, 2017 Admitting Diagnosis ACUTE CHOLECYSTITIS, H/O CABBG (1) Cholecystitis ICD Code: K81.9 - Cholecystitis, unspecified (2) HTN (hypertension) ICD Code: I10 - Essential (primary) hypertension Status: Chronic (3) Dehydration ICD Code: E86.0 - Dehydration (4) CAD (coronary artery disease) ICD Code: I25.10 - Atherosclerotic heart disease of [place] coronary artery without angina pectoris Status: Acute (5) Chest pain ICD Code: R07.9 - Chest pain, unspecified Status: Acute (6) NSTEMI (non-ST elevated myocardial infarction) ICD Code: I21.4 - Non-ST elevation (NSTEMI) myocardial infarction Status: Acute (7) [place] (acute kidney injury) ICD Code: N17.9 - Acute kidney failure, unspecified Status: Acute Procedures Laparoscopic cholecystectomy. 09/06/[address] Hercules Brief History - From Admission This is a 62-year-old male with a PMH of HTN, Hyperlipidemia and CAD s/p CABG who presented to the ER w/ complaints of epigastric pain x2-3 wks. States symptoms have been getting progressively worse in the last 2 days. Denies fever , chills, nausea or vomiting. On arrival, BP 214/97, HR 61, O2 sat 99% on RA. S/p Hydralazine 10mg IV, repeat BP 188/104, HR 66. CBC unremarkable. Chemistry essentially unremarkable except for GFR 66. BUN 20. INR 1.0. UA negative. CT Abd/Pelvis w/ small calcified gallstone lodged in the gallbladder neck with early pericholecystic inflammation. Gen. Surgery consulted by ER physician, will evaluate further. S/p Zosyn in ER. CBC/BMP: 09/06/17 0609 09/06/17 0609 Significant Findings Laboratory Tests Test 09/05/17 20:20 09/06/17 00:05 09/06/17 06:09 Monocytes (%) (Auto) 9.8 % (0.0-8.0) Eosinophils (%) (Auto) 13.6 % (0.0-4.0) Eosinophils # (Auto) 0.8 TH/MM3 (0-0.4) Blood Urea Nitrogen 20 MG/DL (7-18) Random Glucose 124 MG/DL (74-106) 122 MG/DL (74-106) Estimat Glomerular Filtration Rate 66 ML/MIN (>89) 79 ML/MIN (>89) Neutrophils (%) (Auto) 80.3 % (16.0-70.0) Sodium Level 135 MEQ/L (136-145) Imaging Last Impressions Abdomen/Pelvis CT 09/05/17 1940 Signed Impressions: Service Date/Time: Tuesday, September 05, 2017 19:59 - CONCLUSION: 1. Small calcified gallstone is lodged in the gallbladder neck with early pericholecystic inflammation. 2. Nonobstructive right renal calculus. 3. No other significant abnormality. Foster Rausch MD Chest X-Ray 09/05/17 0000 Signed Impressions: Service Date/Time: Tuesday, September 05, 2017 23:24 - CONCLUSION: 1. No acute cardiopulmonary disease. Juan Li MD PE at Discharge GENERAL: Patient lying in bed. Appears comfortable. CARDIOVASCULAR: Regular rate and rhythm without murmurs, gallops, or rubs. RESPIRATORY: Breath sounds equal bilaterally. No accessory muscle use. GASTROINTESTINAL: Abdomen soft. Right upper quadrant tenderness to moderate palpation. No rebound or guarding. MUSCULOSKELETAL: No cyanosis, or edema. BACK: Nontender without obvious deformity. No CVA tenderness. Hospital Course Cholecystitis: ongoing c/o epigastric pain x3 wks, now progressively worse over last 2 days, no associated nausea/vomiting. CT Abd/Pelvis w/ small calcified gallstone lodged in gallbladder neck w/ early pericholecystic inflammation. Gen Sx consulted by ER physician, will danyel. Received Zosyn. Analgesics/antiemetics as need. Chest x-ray reviewed with no acute findings. Laparoscopic cholecystectomy. 09/06/[address] Hercules. Follow-up general surgery recommendations. DC abx afebrile no leyukocytosis HTN: Uncontrolled. BP 214/97, HR 61 on arrival, reports compliance w/ medications, likely compounded by pain complaints. S/p Hydralazine 10mg IV x1 in ER, repeat BP 188/104, HR 66. Monitor BP. Restart home medications. 09/06. Blood pressure slightly elevated in the 160s. We'll decrease maintenance fluids. CAD -History of CABG in 2016. Troponin 0.022. EKG normal sinus rhythm. Continue on metoprolol. Restart statin medication. Restart aspirin when cleared from surgical perspective. Patient denies any chest pain with exertion. Dehydration: GFR 66. BUN 20. Creatinine normal. U/a negative. IVF for hydration, encourage PO intake DVT Prophylaxis: SCD/Teds. Discharge Planning DC today home, discussed with general surgery, cleared for DC to f/u as OP. Pt Condition on Discharge: Stable Discharge Disposition: Discharge Home Discharge Time: > 30 minutes Discharge Instructions DIET: Follow Instructions for: Heart Healthy Diet Activities you can perform: Regular-No Restrictions Follow up Referrals: PCP Follow-up - 2-3 Days Surgical - 10 Days with Dmitry Hercules MD New Medications: Hydrocodone-Acetaminophen ([place]) 5-325 mg Tab 1 TAB PO Q8HR PRN for PAIN, #15 TAB 0 Refills Continued Medications: Aspirin (Aspirin) 81 Mg Chew 81 MG CHEW DAILY, TAB 0 Refills Lisinopril (Lisinopril) 20 Mg Tab 20 MG PO DAILY, #30 TAB 0 Refills Metoprolol Tartrate (Metoprolol Tartrate) 50 Mg Tab 50 MG PO BID, #60 TAB 0 Refills Simvastatin (Simvastatin) 20 Mg Tab 20 MG PO HS for Cholesterol Management, #30 TAB 0 Refills Erica Rodrigues MD Sep 07, 2017 09:18
[2017-09-07] MEDS ORDERED: NORC5TAB PO (09:21)
--- NOTE | 2017-09-07 11:10 | HHI.PR ---
Subjective Subjective Notes Resting in bed No issues Tolerating regular diet Objective Vitals/I&O Vital Signs Date Time Temp Pulse Resp B/P (MAP) Pulse Ox O2 Delivery O2 Flow Rate FiO2 09/07/17 08:00 64 09/07/17 08:00 97.2 18 102/59 (73) 95 09/06/17 21:15 Room Air Radiology Last 48 hours Impressions Abdomen/Pelvis CT 09/05/17 1940 Signed Impressions: Service Date/Time: Tuesday, September 05, 2017 19:59 - CONCLUSION: 1. Small calcified gallstone is lodged in the gallbladder neck with early pericholecystic inflammation. 2. Nonobstructive right renal calculus. 3. No other significant abnormality. Foster Rausch MD Chest X-Ray 09/05/17 0000 Signed Impressions: Service Date/Time: Tuesday, September 05, 2017 23:24 - CONCLUSION: 1. No acute cardiopulmonary disease. Juan Li MD Cardiovascular: Regular Lungs: Clear Abdomen: Other (lap sites c/d/i; minimal tenderness with palpation ) Extremities: No edema A/P Assessment and Plan 62 year old male with cholecystitis -POD1 lap tanya; uncomplicated -Regular diet -No antibiotics needed -Pain control -GS clear for DC -Follow up with Dr. Hercules in about 7-10 days Beatriz Torres Sep 07, 2017 11:10
[2017-09-07 12:00] VITALS: BP 112/75; PULSE 60; RESP 16; TEMP 97.2; O2SAT 95
== END 2017-09-07 14:13 | disposition home or self-care (01) | DRG 419 ==
LOC: NEPC 19:11 → NEDA 22:36 → INTOOBSV 22:36 → NEPGCP 09-06 01:51 → OBSVTOIN 09-06 10:56 → N07B 09-06 18:51
PROVIDERS: ADMIT Hospitalist; ATTEND Hospitalist
PROC: 0FT44ZZ Resection of Gallbladder, Percutaneous Endoscopic Approach (ICD-10-PCS; principal; 2017-09-06 18:51)
DX: K80.12 Calculus of gallbladder with acute and chronic cholecystitis without obstruction (principal); I10 Essential (primary) hypertension; I16.0 Hypertensive urgency; I25.2 Old myocardial infarction; E86.0 Dehydration; I25.10 Atherosclerotic heart disease of native coronary artery without angina pectoris; E78.5 Hyperlipidemia, unspecified; Z95.1 Presence of aortocoronary bypass graft
CPT/HCPCS: 71010; 74176; 80053; 81001; 83690; 84484; 85025; 85610; 85730; 88304; 93005; 94150; 96374; 96375; G0378; J0360; J2270; J2405; J2543; J2710; J3010; J7030; J7120